=== PATIENT | male | born 1940 | race Caucasian/White ===

== ENCOUNTER → 2022-01-28 | Outpatient (CLI) | payer MEDICARE, BC ==
[~2022-01-28] MED LIST: FUROSEMIDE 20 MG/2 ML VIAL ONE; MERTIATIDE TC99M ISOTOPE 1 EA INJ INJ ONE
== END | disposition home or self-care (01) ==
LOC: RADMN 08:04
PROVIDERS: ATTEND Urology
DX: R33.9 Retention of urine, unspecified (principal); N13.30 Unspecified hydronephrosis
CPT/HCPCS: 78707; A9562 ×2; J1940

== ENCOUNTER 2023-02-05 06:38 | Day surgery (SDC) | payer MEDICARE, BC ==
[2023-02-03 19:47] LABS: COVID AG,FIA SOURCE NASAL SWAB
[~2023-02-05] VITALS: Ht 172.7 cm; Wt 108.6 kg
[~2023-02-05 06:38] MED LIST changes: +ALBU18HF12 IH; +BIMA2.5D4 OU; +CARV12 PO; +CLIN300C58 PO; +FAMO20 PO; +FLUT16SP NASAL; -FUROSEMIDE 20 MG/2 ML VIAL ONE; +GABA-1181 PO; +LEVO50 PO; +LOSA-382 PO; -MERTIATIDE TC99M ISOTOPE 1 EA INJ INJ ONE; +MONT-35 PO; +PANT-31 PO; +SODIUM CHLORIDE 0.9% 1,000 ML IV ONE; +SODIUM CHLORIDE 0.9% 1,000 ML ONE
[2023-02-05] MEDS ORDERED: PROPOFOL 1% 20 ML VIAL IVP ONE (12:00)
[2023-02-05] MEDS ORDERED: LIDOCAINE/PF 2% 5 ML VIAL IM ONE (12:00)
[2023-02-05] MEDS ORDERED: OXYGEN THERAPY IH SCH (20:00)
== END 2023-02-05 12:30 | disposition home or self-care (01) ==
LOC: SURGERY 06:38
PROVIDERS: ATTEND Specialist
DX: K64.8 Other hemorrhoids (principal); K57.90 Diverticulosis of intestine, part unspecified, without perforation or abscess without bleeding; K62.5 Hemorrhage of anus and rectum; N13.30 Unspecified hydronephrosis; J45.909 Unspecified asthma, uncomplicated; E66.01 Morbid (severe) obesity due to excess calories; K11.1 Hypertrophy of salivary gland; I82.403 Acute embolism and thrombosis of unspecified deep veins of lower extremity, bilateral; K21.9 Gastro-esophageal reflux disease without esophagitis; J44.9 Chronic obstructive pulmonary disease, unspecified; K40.10 Bilateral inguinal hernia, with gangrene, not specified as recurrent; E03.9 Hypothyroidism, unspecified; Z20.822 Contact with and (suspected) exposure to COVID-19; Z86.69 Personal history of other diseases of the nervous system and sense organs; Z87.898 Personal history of other specified conditions; Z79.899 Other long term (current) drug therapy; Z98.890 Other specified postprocedural states; Z68.37 Body mass index [BMI] 37.0-37.9, adult
CPT/HCPCS: 45398; 87426; C9803; J2704; J3490; J7030